=== PATIENT | female | born 1995 | race Two or more races ===

== ENCOUNTER 2024-04-09 07:45 | Inpatient (IN) | payer OTHER ==
[~2024-04-09] VITALS: Ht 167.6 cm; Wt 81.6 kg
[2024-04-09 09:05] LABS: HEMATOCRIT 41.7 % (36.0-45.00); HEMOGLOBIN 14.3 g/dL (12.0-15.00); MEAN CELL VOLUME 84.6 fL (80.00-100.00); MEAN CORPUSCULAR HEMOGLOBIN 29.1 pg (27.00-32.0); MEAN CORPUSCULAR HGB CONC 34.4 g/dl (32.0-36.0); PLATELET COUNT 236 K/uL (150-450); RED BLOOD COUNT 4.93 M/uL (4.00-6.00)
[2024-04-09 09:16] LABS: PH,URINE 7.5 (5.0-8.0); URINE APPEARANCE Clear; URINE BILIRRUBIN Negative (NEGATIVE); URINE BLOOD Negative; URINE COLOR Yellow; URINE GLUCOSE Negative (NEGATIVE); URINE KETONE Negative (NEGATIVE); URINE LEUKOCYTE Negative; URINE NITRATE Negative; URINE PROTEIN Negative (NEGATIVE); URINE UROBILINOGEN 0.2 E.U./dl
[2024-04-09 09:17] LABS: URINE BACTERIA 89.2 uL (0.0-1933); URINE EPITHELIAL CELLS 2.3 uL (0.0-38.8); URINE RBC 2.2 uL (0.0-20.8)
[2024-04-09] MEDS ORDERED: TAPAZOLE5 MG PO (09:20)
[2024-04-09 09:22] LABS: PARTIAL THROMBOPLASTIN TIME 27.1 SECONDS (22.0-34.0); PROTHROMBIN TIME 10.9 SECONDS (9.0-11.5)
[2024-04-09 09:26] VITALS: BP 115/77
[2024-04-09 10:12] LABS: ALBUMIN 3.8 gm/dL (3.4-5.0); BILIRUBIN TOTAL 0.35 mg/dL (0.3-1.2); CALCIUM 9.5 mg/dL (8.5-10.1); CREATININE SERUM 0.5 mg/dL (0.55-1.02); GFR 144.87; GLOBULINA 3.9 G/DL (2.4-3.5); POTASSIUM 4.1 mEq/L (3.5-5.1); TOTAL PROTEIN 7.7 gm/dL (6.4-8.2)
[2024-04-17] MEDS ORDERED: DEXAMETHASONE SODIUM PHOSPHATE 4 MG/ML VIAL IV ONE (08:30)
[2024-04-17] MEDS ORDERED: MORPHINE SULFATE 4 MG/ML VIAL IV ONE ×2 (09:20→09:50)
[2024-04-17] MEDS ORDERED: ONDANSETRON HCL 2 MG/ML VIAL IV PRN (09:30)
[2024-04-17] MEDS ORDERED: ENALAPRILAT DIHYDRATE 1.25 MG/ML VIAL IV PRN (09:30)
[2024-04-17] MEDS ORDERED: ACETAMINOPHEN 500 MG GEL..CAP PO SCH (17:00)
[2024-04-17] MEDS ORDERED: TRAMADOL HCL 50 MG TABLET PO SCH (17:00)
[2024-04-17] MEDS ORDERED: CYCLOBENZAPRINE HCL 5 MG TABLET PO SCH (17:00)
[2024-04-17 18:21] VITALS: BP 130/82; O2SAT 97
[2024-04-17] MEDS ORDERED: Calcium Carbonate 1 TAB TABLET PO SCH (21:00)
[2024-04-17] MEDS ORDERED: PANTOPRAZOLE SODIUM 40 MG/VIAL VIAL IV PUSH SCH (21:00)
[2024-04-18 00:36] VITALS: BP 107/72; O2SAT 100
[2024-04-18] MEDS ORDERED: LEVOTHYROXINE SODIUM 125 MCG TABLET PO SCH (06:00)
[2024-04-18 08:21] VITALS: BP 119/69; O2SAT 98
== END 2024-04-18 09:37 | disposition home or self-care (01) | DRG 627 ==
LOC: O/R 04-17 05:25 → SURH 04-17 07:45 → SURG 04-17 11:06
PROVIDERS: ADMIT Surgery; ATTEND Surgery
PROC: 0GTH0ZZ Resection of Right Thyroid Gland Lobe, Open Approach (ICD-10-PCS; principal; 2024-04-17 09:15)
DX: C73 Malignant neoplasm of thyroid gland (principal); E05.00 Thyrotoxicosis with diffuse goiter without thyrotoxic crisis or storm

== ENCOUNTER 2025-02-26 17:06 | Emergency (ER) | payer OTHER ==
[~2025-02-26] VITALS: Ht 167.6 cm; Wt 86.2 kg
[~2025-02-26 17:06] MED LIST: TAPAZOLE5 MG PO
[2025-02-26 17:29] VITALS: O2SAT 98
[2025-02-26] MEDS ORDERED: DEXAMETHASONE SODIUM PHOSP/PF 10 MG/ML VIAL IV STA (18:13)
[2025-02-26] MEDS ORDERED: DIPHENHYDRAMINE HCL 50 MG/ML VIAL 1ML IV STA (18:13)
[2025-02-26] MEDS ORDERED: KETOROLAC TROMETHAMINE 60 MG VIAL IM STA (18:13)
[2025-02-26] MEDS ORDERED: 0.9 % SODIUM CHLORIDE 500 ML IV SCH (18:15)
[2025-02-26] MEDS ORDERED: CLONIDINE HCL 0.1 MG TABLET PO STA (18:20)
[2025-02-26] MEDS ORDERED: KETOROLAC TROMETHAMINE 60 MG VIAL IM ONE (18:28)
[2025-02-26] MEDS ORDERED: CLONIDINE HCL 0.1 MG TABLET PO ONE (18:28)
[2025-02-26] MEDS ORDERED: DIPHENHYDRAMINE HCL 50 MG/ML VIAL 1ML ONE (18:28)
[2025-02-26] MEDS ORDERED: DEXAMETHASONE SODIUM PHOSPHATE 4 MG/ML VIAL ONE (18:29)
[2025-02-26 19:04] LABS: BASO % 0.5 % (0.1-1.2); EOS # 0.23 (0.04-0.54); EOS % 2.2 % (0.7-7.0); LYMPH # 3.23 (1.18-3.74); LYMPH % 30.3 % (19.3-53.1); MEAN PLATELET VOLUME 10.90 fl (9.4-12.4); MONO # 0.69 (0.24-0.82); MONO % 6.5 % (4.7-12.5); NEUT # 6.43 (1.56-6.13); NEUT % 60.1 % (34.0-71.1); RED CELL DISTRIBUTION WIDTH 11.3 % (11.6-14.4)
[2025-02-26 19:30] LABS: COVID-19 AG NEGATIVE (NEGATIVE)
[2025-02-26 19:31] LABS: URINE APPEARANCE Clear; URINE BILIRRUBIN Negative (NEGATIVE); URINE BLOOD Negative; URINE COLOR Yellow; URINE GLUCOSE Negative (NEGATIVE); URINE KETONE Negative (NEGATIVE); URINE LEUKOCYTE Trace; URINE NITRATE Negative; URINE PROTEIN Negative (NEGATIVE); URINE UROBILINOGEN 0.2 E.U./dl
[2025-02-26 19:32] LABS: URINE BACTERIA 790.3 uL (0.0-1933); URINE EPITHELIAL CELLS 30.0 uL (0.0-38.8); URINE RBC 2.4 uL (0.0-20.8); URINE WBC 11.6 uL (0.0-23.2)
[2025-02-26 19:35] LABS: URINE CAST 0.00 uL (0.0-1.40)
[2025-02-26 19:51] LABS: ALT/SGPT 51.0 U/L (12-78); AST/SGOT 25.0 U/L (15-37); BILIRUBIN TOTAL 0.24 mg/dL (0.3-1.2); BUN CREA RATIO 22.0 (7.0-25.0); CREATININE SERUM 0.59 mg/dL (0.55-1.02); GFR 118.88; GLOBULINA 4.1 G/DL (2.4-3.5); GLUCOSE FASTING 95.0 mg/dL (65-100); OSMOLALITY SERUM 281.0 MOSM/KG (275-295)
[2025-02-26 21:38] VITALS: BP 119/81
== END 2025-02-26 22:52 | disposition home or self-care (01) ==
LOC: ER 17:07
PROVIDERS: General Practice
DX: R07.89 Other chest pain (principal); R51.9 Headache, unspecified; I10 Essential (primary) hypertension